=== PATIENT | female | born 1950 | race Caucasian/White ===

== ENCOUNTER 2016-10-10 11:52 | Emergency (ER) | payer MEDICARE, OTHER ==
[~2016-10-10] VITALS: Ht 170.2 cm; Wt 69.1 kg
[2016-10-10 11:58] VITALS: PULSE 76; RESP 15; O2SAT 97
--- NOTE | 2016-10-10 12:20 | ED.REPORT ---
HPI-General Illness Date of Service Oct 10, 2016 ED Provider: Thong Cottrell DO Pt is a 66 year old female with a hx of HTN, glaucoma, depression, and pre DM presenting to the ED complaining of palpitations and a 4/10 chest heaviness onset about an hour and a half ago. She has had occasional episodes of PVCs for about 3-4 months, usually for about 5 beats resolved by coughing. Denies SOB, chest pain, dyspnea on exertion, any pain at all, any recent illness, or any other symptoms at this time. Nursing Notes Stated Complaint: HEART Chief Complaint: Dysrhythmia/Cardiac Nursing Notes Reviewed: Yes Allergies: Coded Allergies: No Known Allergies (Unverified , 10/10/16) General Time Seen by MD: 12:02 Chief Complaint Other (Palpitations) Hx Obtained From: Patient Arrived By: Walk-in Sudden in Onset?: Yes Onset Occurred: 1 - 4 hours ago Symptom Duration: Since onset Location: : Chest Quality: Heaviness Severity: Current: Moderate Severity: Maximum: Pain level 4 out of 10 Recent Healthcare: No recent doctor visit, No recent hospitalization Similar Sx Previous: No Past Medical History Past Medical History Glaucoma Depression Pre diabetes Reports: Hypertension Past Surgical History Thoracotomy as a child Reports: Smoking History Never Smoker Social History Alcohol Use: 1-3 per day (Wine daily) Drug Use: Denies drug use Ambulatory Status Independent Review of Systems Full Review of Systems Constitutional: Denies: Fever, Weakness - generalized Respiratory: Denies: Shortness of breath Cardiovascular: Reports: Palpitations, Denies: Chest pain, Dyspnea on exertion GI: Denies: Vomiting Complete sys rev & neg: except as marked. Physical Exam Vital Signs Vital Signs Date Time Temp Pulse Resp B/P Pulse Ox O2 Delivery O2 Flow Rate FiO2 10/10/16 15:27 68 14 115/80 96 Room Air 10/10/16 14:38 68 21 114/68 95 Room Air 10/10/16 13:31 81 114/68 95 Room Air 10/10/16 11:58 76 15 97 Room Air Initial VS: Reviewed General/Constitutional: Well-developed, Well-nourished Head / Eyes: Atraumatic, Normocephalic, PERRL ENT: Mucous membranes moist, Conjunctiva normal, No scleral icterus Cardiovascular: Regular rate & rhythm, Heart sounds normal, Intact distal pulses Abdomen / GI: Soft, Non-tender, No guarding, No rebound, No distention Extremities: Vascular intact, Neuro intact, No swelling, No tenderness Skin: Warm, Dry, No cyanosis Neurologic: Alert, Oriented, Nonfocal Psychiatric: Mood/affect normal, Behavior normal, Normal thought content Neck: Atraumatic, Supple, Full range of motion, No adenopathy, No swelling, No JVD Respiratory / Chest: Atraumatic, No respiratory distress, No chest tenderness Rales / Rhonchi: Positive: Rales bilateral bases Lower Extremity / Pelvis / MS: No edema Interpretation & Diagnostics Lab Results Interpretation Result Diagram: 10/10/16 1205 10/10/16 1205 Test 10/10/16 12:05 10/10/16 12:43 10/10/16 14:18 White Blood Count 5.3th/mm3 (3.8-10.1) Red Blood Count 4.23mil/mm3 (3.90-5.20) Hemoglobin 13.2g/dL (12.0-15.6) Hematocrit 40.1% (35.0-46.0) Mean Corpuscular Volume 94.8fL (81-100) Mean Corpuscular Hemoglobin 31.2pg (27.0-35.0) Mean Corpuscular Hemoglobin Concent 32.9% (32.0-37.0) Red Cell Distribution Width 14.4% (12.3-15.4) Platelet Count 187bil/L (150-400) Neutrophils (%) (Auto) 37.5% (40-74) Lymphocytes (%) (Auto) 48.2% (14-46) Monocytes (%) (Auto) 10.3% (4-12) Eosinophils (%) (Auto) 3.0% (0-5) Basophils (%) (Auto) 0.8% (0-3) Sodium Level 139mEq/L (134-144) Potassium Level 4.2mEq/L (3.5-5.2) Chloride Level 103mEq/L (97-108) Carbon Dioxide Level 24mmol/L (18-29) Blood Urea Nitrogen 21mg/dL (8-27) Creatinine 0.71mg/dL (0.57-1.00) Estimat Glomerular Filtration Rate 118mL/min (>59) Glucose Level 101mg/dL (60-99) Calcium Level 9.8mg/dL (8.5-10.1) Magnesium Level 2.1mg/dL (1.6-2.6) Total Bilirubin 0.4mg/dL (0.0-1.2) Aspartate Amino Transf (AST/SGOT) 19U/L (0-50) Alanine Aminotransferase (ALT/SGPT) 15U/L (0-32) Alkaline Phosphatase 69U/L (25-165) Total Protein 7.4g/dL (6.4-8.4) Albumin 4.3g/dL (3.4-5.0) Hold Zazueta Top Tube Received (Received) Pro-B-Type Natriuretic Peptide 36.03pg/mL (0-301) Thyroid Stimulating Hormone (TSH) 3.400uIU/mL (0.450-4.500) Troponin T < 0.010ug/L (0.0-0.011) ECG Interpretation Time: 11:59 Interpreted by: ED physician Normal ECG Interpretation: Normal ECG w/ rate of... (69) X-Ray Chest Interpretation Chest Xray Interpretation: IMPRESSION: Source of chest pain is not seen. No CHF suspected. Abnormal elevation of the left hemidiaphragm but chronicity and etiology is uncertain. Dictated by: Patricio Hussein M.D. on 10/10/2016 at 12:56 View: AP & lat Interpretation / Wet Read by: Interpret - Radiologist Re-Eval/Medical Decision Med Decision/Clinical Course She presents with PVCs for approximately 4 months but with some atypical chest pain today. Serial troponins are negative, other labs are unremarkable. Her chest pain was unchanged with nitroglycerin however resolved quickly with morphine. Her EKG was reassuring on serial exams. Unlikely to be acute coronary syndrome, patient is reassured and strongly encouraged to start aspirin, follow up with the primary care for further outpatient workup and return to the ER for any new or concerning chest pain. Time of Eval: 13:57 Patient Status: Condition improved Re-Evaluation/Progress Note: Discussed lab, EKG, and x ray results and plan for repeat troponin then discharge. Pt understands and agrees with plan. Time of Eval: 15:14 Patient Status: Condition improved Re-Evaluation/Progress Note: Discussed troponin results and plan for discharge. Counseled Regarding: Diagnosis, Lab results, Need for follow-up, When/why to return to ED Discharge & Departure Primary Impression: PVCs (premature ventricular contractions) Disposition: Home Discharge Condition All VS Reviewed: Yes Condition: Improved Patient Instructions: Chest Pain (ED) Additional Instructions: No dangerous cause for your PVCs was identified. Your EKG, x ray, and labs all looked great. Return to the ER if you develop any new or worsening symptoms. You should begin taking 81 mg of aspirin daily. Follow up with your primary care doctor further testing which may include a Holter monitor, echocardiogram or provocative stress testing. Referrals: Dayanara Zhang ARNP [facility] Scribe Attestation Portions of this note were transcribed by Marisela Arriaza. I, Dr. Cottrell personally performed the history, physical exam and medical decision-making; I reviewed and confirmed the accuracy of the information in the transcribed note. Signed by: Adis Gray, 10/10/2016 at 1502. copies to: Dayanara Zhang ARNP; [facility] Thong Cottrell DO Oct 10, 2016 12:20 MARISELA ARRIAZA Oct 10, 2016 12:27
[2016-10-10 12:21] LABS: BASOPHILS % (AUTO) 0.8 % (0-3); MONOCYTES % (AUTO) 10.3 % (4-12); Mean Corpuscular Hemoglobin 31.2 pg (27.0-35.0); Mean Corpuscular Volume 94.8 fL (81-100); NEUTROPHILS % (AUTO) 37.5 % (40-74); Platelet Count 187 bil/L (150-400)
[2016-10-10 12:41] LABS: TROPONIN T 0.01 ug/L (0.0-0.011)
[2016-10-10 12:52] LABS: Magnesium 2.1 mg/dL (1.6-2.6)
--- NOTE | 2016-10-10 12:58 | DRSVH ---
PROCEDURE: X-RAY CHEST, TWO VIEWS ([id number]) INDICATIONS: CHEST PAIN PALPITATIONS TECHNIQUE: 2 views of the chest were acquired. COMPARISON: None. FINDINGS: Surgical changes and devices: None. Lungs and pleura: No pleural effusions or pneumothorax. Lungs are clear but the left hemidiaphragm is asymmetrically elevated, chronicity uncertain. Mediastinum: Mediastinal contours are normal. Heart size is normal. Bones and chest wall: No suspicious bony abnormalities. Soft tissues appear unremarkable. IMPRESSION: Source of chest pain is not seen. No CHF suspected. Abnormal elevation of the left hem idiaphragm but chronicity and etiology is uncertain. Dictated by: Patricio Hussein M.D. on 10/10/2016 at 12:56 Approved by: Patricio Hussein M.D. on 10/10/2016 at 12:57
[2016-10-10] MEDS ORDERED: LidocaineVisc 2%:Antacid 1:1 10 mL Syringe PO ONE (13:10)
[2016-10-10] MEDS ORDERED: Ondansetron 2 mg/mL 2 mL Inj IVPUSH PRN (13:10)
[2016-10-10 13:31] VITALS: BP 114/68; PULSE 81; O2SAT 95
[2016-10-10 14:38] VITALS: BP 114/68; PULSE 68; RESP 21; O2SAT 95
[2016-10-10 15:27] VITALS: BP 115/80; PULSE 68; RESP 14; O2SAT 96
== END 2016-10-10 15:27 | disposition home or self-care (01) ==
LOC: SED 11:52
DX: I49.3 Ventricular premature depolarization (principal); I10 Essential (primary) hypertension; F32.9 Major depressive disorder, single episode, unspecified; H40.9 Unspecified glaucoma; R73.03 Prediabetes
CPT/HCPCS: 36415; 71020; 80053; 83036; 83735; 83880; 84443; 84484; 85025; 93005; 96374; 96375; 99285; J2270; J2405